=== PATIENT | male | born 1975 | race Caucasian/White ===

== ENCOUNTER 2017-02-12 09:13 | Emergency (ER) | payer OTHER ==
[~2017-02-12] VITALS: Ht 180.3 cm; Wt 104.3 kg
[~2017-02-12 09:13] MED LIST: AMOXICOT500 MG PO; BACTRIM DS 8001 TA1 PO; ETODOLAC400 MG PO; NOMEDS; PREDNISONE 20MG20 MG PO; TESSALON PERLE100 MG PO; ZITHROMAX Z PA250 MG PO
--- OUTSIDE RECORDS SUMMARY | 2017-02-12 09:18 | External Medical Summary Rpt ---
Demographics Preferred Language Bangladeshi Marital Status Unknown Bahai Affiliation Unknown Race Unknown Ethnic Group Unknown Author Author JULI Address Unknown Phone Immunization No patient found.
--- OUTSIDE RECORDS SUMMARY | 2017-02-12 09:18 | External Medical Summary Rpt ---
Author Author JULI Address Unknown Phone Purpose Continuity of Care Document - through 2016
--- OUTSIDE RECORDS SUMMARY | 2017-02-12 09:18 | External Medical Summary Rpt ---
Demographics Preferred Language Citizen Of [place] Marital Status Unknown Mandaeism Affiliation Unknown Race Unknown Ethnic Group Unknown Author Author JULI Address Unknown Phone Immunization No patient found.
--- OUTSIDE RECORDS SUMMARY | 2017-02-12 09:18 | External Medical Summary Rpt ---
Author Author [employer] Organization [employer] Address Unknown Phone Unavailable Purpose Continuity of Care Document - through 2016
--- OUTSIDE RECORDS SUMMARY | 2017-02-12 09:18 | External Medical Summary Rpt ---
Author Author JULI Address Unknown Phone [email or web address] Purpose Continuity of Care Document - through 2016
--- OUTSIDE RECORDS SUMMARY | 2017-02-12 09:18 | External Medical Summary Rpt ---
Author Author JULI Dunham, [employer] Organization [employer] Address Unknown Phone Unavailable
--- NOTE | 2017-02-12 09:51 | Urgent Treatment Center Report ---
History of Present Issue Date/Time Seen by Provider 02/12/17 0977 Visit Reason Pt arrived:Walked Presenting Problem:PT NOTED TO HAVE REDNESS AND SWELLING TO RT EYE THAT BEGAN YESTERDAY Location if Accident: Onset of symptoms date/time:02/11/17/ or onset unknown for:MEDICAL HX UNKNOWN Have you (or family members/close friends) recently traveled outside the [place]? N If Yes, where/when: Have you had exposure to infectious disease within the past month? TB? Other? Specify: c/o right eye pain and redness. Started last night. "Just felt like something was up under my top eye lid.". Pt reports holding his lid out and rolling his eye around. "Seemed better so I went to bed". Woke up this morning w/ eye matted closed. "But there was no crusting or drainage". Pain only when looking to the right. "Feels like something is under my top eyelid near the outer corner now". Watery. Denies change in vision. Mild redness and mild swelling. Source patient Exam Limitations no limitations ALLERGIES Coded Allergies: No Known Allergies (04/03/16) History Medical History General CAD? No Angina: No [place]: No Hypertension? No Hyperlipidemia? No CHF? No DVT? No PE? No COPD? No Asthma? No Anemia? No GERD? No Gastric ulcers? No GI Bleed? No Hernia? No Thyroid Problems? No Hypothyroidism? No CVA? No Seizures? No Diabetes? No Insulin Dependent: No Insulin Pump: No Home FSBS? No Renal Insuffiency? No UTI? No Stones? No BPH? No GB Disease: No Nephritic Syndrome? No Asplenia? No Hepatitis? No Sickle Cell Disease? No Arthritis? No Migraines? No Cataracts? No Glaucoma? No MRSA? No HIV? No TB? No Anxiety? No Depression? No Cancer? No Immunization HX DT/Tetanus Unknown Surgical Hx Previous Surgery?Y Tonsils Social History Smoking Hx Smoker: Never Smoker Tobacco: No Packs/day N/A Alcohol Alcohol: No Review of Systems All Other Systems Reviewed and Negative Constitutional denies fever, denies malaise Eyes see HPI, denies blurred vision, denies drainage, denies decreased acuity, denies photophobia, denies previous injury, denies shadows, denies tunnel vision, denies contact lenses ENT denies: ear pain. Psychiatric/Neurological denies headache, denies other (dizziness) Physical Exam Vital Signs Vital Signs Date Time Temp Pulse Resp B/P Pulse O2 O2 Flow FiO2 Ox Delivery Rate 02/12 921 97.9 69 18 122/87 98 General Appearance normal appearance, no apparent distress Eye Exam - right eye other (see comment), left eye normal exam Comment right eye exam normal except mild scleral injection, mild upper eyelid inflammation, mild tenderness lateral edge of upper lid, no foreign body or abnormality seen on exploration snellen: L 20/15 R 20/20 Both 20/13 Respiratory Status No: respiratory distress. Cardiovascular no peripheral edema Neurologic alert, oriented x 3 Mental status normal mood/affect Skin normal color, warm/dry Medical Decision Making LABS/Meds/Orders Pt receiving controlled substance in ED? No Results/Orders Current Medication Orders Sig/Lesvia Start time Last Medication Dose Route Stop Time Status Admin Boric Acid/Sodium 120 ML ONCE ONE 02/12 1000 DC 02/12 Borate OP 02/12 1001 0957 Fluorescein Sodium 1 EACH ONCE ONE 02/12 1000 DC 02/12 OP 02/12 1001 0957 Tetracaine HCl See Dose ONCE ONE 02/12 1000 DC 02/12 Insts (1) OP 02/12 1001 0958 Miscellaneous 0 .STK-MED ONE 02/12 0940 DC XX Dose Instructions: (1)Tetracaine HCl: DOSE = 1 - 2 DROPS Consult MD Physician Consult Consult/PCP Dr. Valle, [facility] Time Called 1000 Reason Pt. Condition Comments Dr. valle not available. Send patient to office and they will work him in immediately. Procedures Eye Procedure Eye Procedure Risks/benefits discussed with pt/guardian? Yes Tetracaine Drops Administered right eye Fluorescein Stick(s) Used right eye Slit lamp exam Yes (no findings) Eye Irrigated w/ Saline (ccs) 125 Departure Departure Time of Disposition 1003 Disposition DC Home or Self Care(routine) Clinical Impression Primary Impression: Acute right eye pain Secondary Impressions: Redness of right eye Condition STABLE Referrals NO REFERRAL [facility]: [phone] [place] [address]. Report there immediately after leaving clinic. They will work you in immediately. Additional Instructions Report directly to [facility] Discharge Counseling Counseled pt/family regarding diagnosis, follow up needs at 1007
[2017-02-12 10:08] VITALS: BP 122/87
== END 2017-02-12 10:09 | disposition home or self-care (01) ==
LOC: UTC 09:13
DX: H57.11 Ocular pain, right eye (principal)

== ENCOUNTER 2017-03-15 06:32 | Emergency (ER) | payer OTHER ==
[~2017-03-15] VITALS: Ht 180.3 cm; Wt 104.3 kg
--- NOTE | 2017-03-15 06:55 | Emergency Room Report ---
History of Present Illness Time Seen by [id number] Presenting Problem in Triage Pt arrived:Walked Presenting Problem:PAIN IN LEFT SHOULDER, UNKNOWN INJURY. HAS HAD FOR 3 DAYS. 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 N Clinical Suspician of Infection? N Mental Status: 2 - Mildly Altered Sepsis Risk:Low Sepsis Risk Have you (or family members/close friends) recently traveled outside the [place]? N If Yes, where/when: Have you had exposure to infectious disease within the past month? N TB? Other? Specify: Source patient, RN notes reviewed, RN/MD Exam Limitations no limitations Comment This is a 41-year-old male patient arriving to the emergency room with LEFT shoulder pain after playing basketball 3 days prior to arrival. Patient stated that he woke up with LEFT shoulder pain earlier this morning. Denies any chest or shortness of breath. ALLERGIES Coded Allergies: No Known Allergies (04/03/16) History Medical History General CAD? No Angina: No [place]: No Hypertension? No Hyperlipidemia? No CHF? No DVT? No PE? No COPD? No Asthma? No Anemia? No GERD? No Gastric ulcers? No GI Bleed? No Hernia? No Thyroid Problems? No Hypothyroidism? No CVA? No Seizures? No Diabetes? No Insulin Dependent: No Insulin Pump: No Home FSBS? No Renal Insuffiency? No End Stage Renal Disease? No UTI? No Stones? No BPH? No GB Disease: No Nephritic Syndrome? No Asplenia? No Hepatitis? No Sickle Cell Disease? No Arthritis? No Migraines? No Cataracts? No Glaucoma? No MRSA? No HIV? No TB? No Anxiety? No Depression? No Cancer? No Immunization Hx DT/Tetanus Unknown Surgical Hx Previous Surgery?Y Tonsils Social History Smoking Hx Smoker: Never Smoker Tobacco: No Type Cigarettes Packs/day N/A Alcohol Alcohol: No Review of Systems All Other Systems Reviewed and Negative Musculoskeletal joint pain (LEFT shoulder pain) Physical Exam Vital Signs Vital Signs Date Time Temp Pulse Resp B/P Pulse O2 O2 Flow FiO2 Ox Delivery Rate 03/15 719 98.2 68 22 119/63 98 03/15 0637 98.2 68 22 119/63 98 General Appearance normal appearance, WD/WN, no apparent distress Respiratory Status Yes: trachea midline, chest symmetrical, non tender chest. No: respiratory distress. Lung Sounds bilateral: normal breath sounds, lungs clear. Cardiovascular normal exam, regular rate/rhythm, no peripheral edema, no gallop, no JVD, no murmur, no rub, normal peripheral pulses Gastrointestinal normal bowel sounds, normal exam, non tender, soft, no organomegaly Extremities normal inspection, LEFT shoulder tender to palpation, decreased range of motion due to pain Neurologic alert, normal exam, oriented x 3 Mental status normal mood/affect Skin intact, normal color, warm/dry Medical Decision Making LABS/Meds/Orders Pt receiving controlled substance in ED? No Comment Patient appears medically stable, in no acute distress. Will send him home with Medrol Dosepak plus NSAIDs. No better he will follow-up with physical medicine specialist, Dr. Verma. Results/Orders Orders Procedure Date/time Status [id number] VIEWS 03/15 0648 Active XRAY/CT/US XRAY/CT/US XRAY shoulder (left) XR interpretation by reviewed by me Xray Results normal/NAD, no fracture seen Departure Departure Time of Disposition 0709 Disposition DC Home or Self Care(routine) Clinical Impression Primary Impression: Rotator cuff tendinitis Qualifiers: Laterality: left Qualified Code: M75.82 - Other shoulder lesions, left shoulder Condition STABLE Referrals KEVEN ZENDEJAS, JAMEY SIMMONS: 1 Week-Call Office if not better Patient Instructions DI for Rotator Cuff Injury Additional Instructions Please take the medications prescribed as directed, follow-up with the physical medicine specialist if no better per instructions. Discharge Counseling Counseled pt/family regarding diagnosis, test results, medications/RX, home care, follow up needs Comment Please take the medications prescribed as directed, follow-up with the physical medicine specialist if no better per instructions. Prescriptions Current Visit Scripts Methylprednisolone (Medrol Dose Bakari) 4 MG PO UD #1 BAKARI TAKE DIRECTED ON PACKAGING Etodolac 200 MG PO QIDP PRN pain #20 CAP ED Critical Care Critical Care No at 0753
--- NOTE | 2017-03-15 06:55 | Emergency Room Report ---
History of Present Illness Time Seen by [id number] Presenting Problem in Triage Pt arrived:Walked Presenting Problem:PAIN IN LEFT SHOULDER, UNKNOWN INJURY. HAS HAD FOR 3 DAYS. 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 N Clinical Suspician of Infection? N Mental Status: 2 - Mildly Altered Sepsis Risk:Low Sepsis Risk Have you (or family members/close friends) recently traveled outside the [place]? N If Yes, where/when: Have you had exposure to infectious disease within the past month? N TB? Other? Specify: Source patient, RN notes reviewed, RN/MD Exam Limitations no limitations Comment This is a 41-year-old male patient arriving to the emergency room with LEFT shoulder pain after playing basketball 3 days prior to arrival. Patient stated that he woke up with LEFT shoulder pain earlier this morning. Denies any chest or shortness of breath. ALLERGIES Coded Allergies: No Known Allergies (04/03/16) History Medical History General CAD? No Angina: No [place]: No Hypertension? No Hyperlipidemia? No CHF? No DVT? No PE? No COPD? No Asthma? No Anemia? No GERD? No Gastric ulcers? No GI Bleed? No Hernia? No Thyroid Problems? No Hypothyroidism? No CVA? No Seizures? No Diabetes? No Insulin Dependent: No Insulin Pump: No Home FSBS? No Renal Insuffiency? No End Stage Renal Disease? No UTI? No Stones? No BPH? No GB Disease: No Nephritic Syndrome? No Asplenia? No Hepatitis? No Sickle Cell Disease? No Arthritis? No Migraines? No Cataracts? No Glaucoma? No MRSA? No HIV? No TB? No Anxiety? No Depression? No Cancer? No Immunization Hx DT/Tetanus Unknown Surgical Hx Previous Surgery?Y Tonsils Social History Smoking Hx Smoker: Never Smoker Tobacco: No Type Cigarettes Packs/day N/A Alcohol Alcohol: No Review of Systems All Other Systems Reviewed and Negative Musculoskeletal joint pain (LEFT shoulder pain) Physical Exam Vital Signs Vital Signs Date Time Temp Pulse Resp B/P Pulse O2 O2 Flow FiO2 Ox Delivery Rate 03/15 719 98.2 68 22 119/63 98 03/15 0637 98.2 68 22 119/63 98 General Appearance normal appearance, WD/WN, no apparent distress Respiratory Status Yes: trachea midline, chest symmetrical, non tender chest. No: respiratory distress. Lung Sounds bilateral: normal breath sounds, lungs clear. Cardiovascular normal exam, regular rate/rhythm, no peripheral edema, no gallop, no JVD, no murmur, no rub, normal peripheral pulses Gastrointestinal normal bowel sounds, normal exam, non tender, soft, no organomegaly Extremities normal inspection, LEFT shoulder tender to palpation, decreased range of motion due to pain Neurologic alert, normal exam, oriented x 3 Mental status normal mood/affect Skin intact, normal color, warm/dry Medical Decision Making LABS/Meds/Orders Pt receiving controlled substance in ED? No Comment Patient appears medically stable, in no acute distress. Will send him home with Medrol Dosepak plus NSAIDs. No better he will follow-up with orthopedic rn, Dr. Verma. Results/Orders Orders Procedure Date/time Status [id number] 03/15 0648 Active XRAY/CT/US XRAY/CT/US XRAY shoulder (left) XR interpretation by reviewed by me Xray Results normal/NAD, no fracture seen Departure Departure Time of Disposition 0709 Disposition DC Home or Self Care(routine) Clinical Impression Primary Impression: Rotator cuff tendinitis Qualifiers: Laterality: left Qualified Code: M75.82 - Other shoulder lesions, left shoulder Condition STABLE Referrals KEVEN ZENDEJAS, JAMEY SIMMONS: 1 Week-Call Office if not better Patient Instructions DI for Rotator Cuff Injury Additional Instructions Please take the medications prescribed as directed, follow-up with the orthopedic rn if no better per instructions. Discharge Counseling Counseled pt/family regarding diagnosis, test results, medications/RX, home care, follow up needs Comment Please take the medications prescribed as directed, follow-up with the orthopedic rn if no better per instructions. Prescriptions Current Visit Scripts Methylprednisolone (Medrol Dose Bakari) 4 MG PO UD #1 BAKARI TAKE DIRECTED ON PACKAGING Etodolac 200 MG PO QIDP PRN pain #20 CAP ED Critical Care Critical Care No at 0753
[2017-03-15] MEDS ORDERED: ETODOLAC200 MG PO (07:14)
[2017-03-15] MEDS ORDERED: MEDROL 4MG. DOSE4 MG PO (07:14)
[2017-03-15 07:19] VITALS: BP 119/63
--- NOTE | 2017-03-15 15:17 | RADIOLOGY REPORT PS360 ---
[id number] [id number] HISTORY: Shoulder pain PAIN ORDERING PHYSICIAN: Yordy Dobbs MD PATIENT AGE: 41 years COMPARISON: None FINDINGS: No fracture or dislocation. No lytic or blastic change. There is normal mineralization. The joint spaces are well-preserved. No significant degenerative/arthritic changes. No erosive changes evident. There are 2 small sclerotic foci within ureteral headache consistent with bone islands. IMPRESSION: No acute finding
== END 2017-03-15 07:19 | disposition home or self-care (01) ==
LOC: ER 06:32
DX: M75.82 Other shoulder lesions, left shoulder (principal)